=== PATIENT | male | born 1990 | race Caucasian/White ===

== ENCOUNTER → 2017-09-10 07:08 | Outpatient (CLI) | payer SELFPAY ==
--- NOTE | 2017-09-10 07:17 | DI.RAD.S_ITS ---
PROCEDURE: XR CHEST 2V INDICATIONS: chest pressure TECHNIQUE: 2 views of the chest were acquired. COMPARISON: None. FINDINGS: Surgical changes and devices: None. Lungs and pleura: No pleural effusions or pneumothorax. Lungs are clear. Mediastinum: Mediastinal contours are normal. Heart size is normal. Bones and chest wall: No suspicious bony abnormalities. Soft tissues appear unremarkable. IMPRESSION: Normal for age, source of current symptoms is not seen. Dictated by: Vladimir Saunders M.D. on 09/10/2017 at 8:16 Approved by: Vladimir Saunders M.D. on 09/10/2017 at 8:16
== END ==
PROVIDERS: Visit Provider Physician Assistant
DX: R07.89 Other chest pain (principal); R07.81 Pleurodynia
CPT/HCPCS: 71046

== ENCOUNTER → 2017-09-13 06:36 | Outpatient (CLI) | payer SELFPAY ==
[2017-09-13 07:39] LABS: D Dimer < 200 ng/mL (<230)
== END ==
PROVIDERS: Visit Provider Physician Assistant
DX: R07.9 Chest pain, unspecified (principal)
CPT/HCPCS: 36415; 85379